=== PATIENT | male | born 1985 | race Asian ===

== ENCOUNTER 2016-06-30 22:04 | Inpatient (IN) | payer BC ==
[~2016-06-30 22:04] MED LIST: DIVA500T7 PO; PHE30 PO; ZONI100C13 PO
[2016-07-01 00:15] VITALS: BP 99/54; RESP 19
[2016-07-01] MEDS ORDERED: morphine 2 MG INJ IV PRN (02:30)
[2016-07-01] MEDS ORDERED: NACL 0.9% 3 ML SYG IV SCH (02:30)
[2016-07-01] MEDS ORDERED: DOCUSATE SODIUM 100 MG CAP PO PRN (02:30)
[2016-07-01] MEDS ORDERED: LORAZEPAM 2 MG INJ IV PRN (02:30)
[2016-07-01] MEDS ORDERED: ACETAMINOPHEN 325 MG TAB PO PRN (02:30)
[2016-07-01] MEDS ORDERED: ALBUTEROL/IPRATROPIUM (NEB) 3 ML AMP HHN PRN (02:30)
[2016-07-01] MEDS ORDERED: ONDANSETRON 4 MG INJ IV PRN (02:30)
--- NOTE | 2016-07-01 02:44 | HP ---
Date/Time of Note Date/Time of Note DATE: 07/01/16 TIME: 02:37 Assessment/Plan VTE Prophylaxis VTE Prophylaxis Intervention: SCD's Lines/Catheters IV [facility]from [facility] Peripheral IV Urinary Cath still in place: No Assessment/Plan Assessment/Plan 31 yo male with a past medical history of epilepsy, MR, with cognition disorder who presents with several days of change in mental status. 1. Encephalopathy - metabolic vs other - will admit the patient to med/surg, consult neurology, check TSH/Mag, Vit B12, Folate, IVF, npo, EEG, seizure precautions, neurovascular checks 2. Epilepsy - continue with depakote, check level, phenobarbital and zonegran. EEG for overriding seizures 3. Hyponatremia - continue with IVF 4. MR/cognitive delay - continue with re-orienting patient 5. GI ppx - pepcid IV 6. DVT ppx - scds as per clinical course. this history and physical took greater then 45 minutes to complete HPI/ROS Admit Date/Time Admit Date/Time Jul 01, 2016 at 2:38 am Hx of Present Illness 31 yo male with a past medical history of epilepsy, MR, with cognition disorder who presents with several days of change in mental status. As per the chart, since the patient is no verbal, he has not been eating or acting the same over the last several days. He was noted not to have any seizure like activity. He did have a bump on his head. He initially went to [facility] for his evaluation, and transferred here for insurance purposes. [facility]: Na+ : 129 CT head: area of scalp swelling noted, no active bleeding CXR: Left midlung increased opacity, concerning for infiltrate ROS cannot assess patient is non-verbal PMH/Family/Social Past Medical History epilepsy, MR with cognitive delay Past Surgical History Past Surgical Hx: no surgical history Family History Significant Family History: no pertinent family hx Social History Alcohol Use: none Smoking Status: Never smoker Drug Use: none Exam/Review of Systems Exam Exam Gen Rosita: NAD, Alert to self HEENT: scalp hematoma noted, PERRLA NECK: supple, no thyromegaly THORAX: symmetrical, no obvious deformities CV: S1S2, RRR, no M/G/R Lungs: CTAB no W/C/R/R Abd: soft, NT/ND, +BS, no rebound, no guarding, neg HSM EXT: no edema, no ecchymosis, no clubbing, FROM Neuro: CN II-XII grossly intact, no focal deficits Psych: withdrawn, non-communicative Skin: C/D/I Medications Medications Current Medications Sodium Chloride (NS) 1,000 ml @ 75 mls/hr [id number] IV ; Start 07/01/16 at 02:23 Ondansetron HCl (Zofran Inj) 4 mg Q6H PRN IV NAUSEA AND/OR VOMITING; Start at 02:30 Acetaminophen (Tylenol Tab) 650 mg Q6H PRN PO PAIN LEVEL 1-3 OR FEVER; Start at 02:30 Morphine Sulfate (morphine) 2 mg Q4H PRN IV SEVERE PAIN LEVEL 7-10; Start 07/01 at 02:30 Docusate Sodium (Colace) 100 mg Q12H PRN PO CONSTIPATION; Start 07/01/16 at 02: 30 Famotidine (Pepcid Iv) 20 mg Q12 IV ; Start 07/01/16 at 09:00 Divalproex Sodium (Depakote Er) 500 mg Q8 PO ; Start 07/01/16 at 06:00 Phenobarbital (Luminal) 64.8 mg BID PO ; Start 07/01/16 at 09:00 Zonisamide (Zonegran) 200 mg BID PO ; Start 07/01/16 at 09:00 Lorazepam (Ativan) 2 mg Q6H PRN IV seizures; Start 07/01/16 at 02:30 PATRICIA LOPEZ MD Jul 01, 2016 02:44
[2016-07-01] MEDS: SOD CHLORIDE 0.9% 1,000 ML IV SCH ×2 (03:35→21:37)
[2016-07-01] MEDS: CEFTRIAXONE 1 GM/50 ML (PMX) 50 ML IVPB SCH (03:35)
[2016-07-01] MEDS: AZITHROMYCIN 500MG/NS (PMX) 250 ML IVPB SCH (04:44)
[2016-07-01] MEDS: DIVALPROEX (ER) 500 MG TAB PO SCH ×3 (06:19→21:39)
[2016-07-01 07:05] LABS: FOLATE 14.4 ng/ml (2.8-20.0)
[2016-07-01 08:09] LABS: MAGNESIUM 2.1 mg/dl (1.7-2.5)
[2016-07-01 08:10] LABS: CHOL/HDL RATIO 8.3 RATIO
[2016-07-01 08:24] VITALS: BP 100/60; RESP 18
[2016-07-01] MEDS: ZONISAMIDE 100 MG CAP PO SCH ×2 (09:19→21:37)
[2016-07-01] MEDS: FAMOTIDINE 20 MG INJ IV SCH ×2 (09:19→21:37)
[2016-07-01] MEDS: PHENOBARBITAL 32.4 MG TAB PO SCH ×2 (09:19→21:37)
[2016-07-01 09:27] LABS: THYROID STIMULATING HORMONE 3.68 MIU/L (0.465-4.680)
--- NOTE | 2016-07-01 15:51 | PDOCDIS ---
Discharge Instructions CONDITION Patient Condition: Good HOME CARE INSTRUCTIONS: Diet Instructions: Regular ACTIVITY: Activity Restrictions: No Restrictions FOLLOW UP/APPOINTMENTS Appointments Follow up with PCP as out-pt in one week MARY TAM MD Jul 01, 2016 15:51
[2016-07-01] MEDS ORDERED: CEPH500C PO (15:52)
--- NOTE | 2016-07-01 15:56 | PN ---
Date/Time of Note Date/Time of Note DATE: 07/01/16 TIME: 15:53 Assessment/Plan VTE Prophylaxis VTE Prophylaxis Intervention: SCD's Lines/Catheters IV [facility]from [facility] Peripheral IV Urinary Cath still in place: No Assessment/Plan Chief Complaint/Hosp Course Assessment/Plan 1. Encephalopathy - metabolic vs other - Resolved, patient is awake and alert 2. Epilepsy - continue with depakote, check level, phenobarbital and zonegran. EEG for overriding seizures 3. Hyponatremia - continue with IVF, follow-up electrolytes 4. MR/cognitive delay - continue with re-orienting patient 5. GI ppx - pepcid IV 6. DVT ppx - scds Continue monitor patient closely for recommendation management treatment as clinical course Plan to discharge home tomorrow Problems: Subjective 24 Hr Interval Summary Free Text/Dictation Patient is awake alert Able to tolerate p.o. intake/his medications Exam/Review of Systems Vital Signs Vitals Vital Signs Date Time Temp Pulse Resp B/P Pulse Ox O2 Delivery O2 Flow Rate FiO2 07/01/16 08:24 98.6 18 18 100/60 95 Intake and Output 06/30/16 06/30/16 07/01/16 15:00 23:00 07:00 Intake Total 20 ml Output Total 400 ml Balance -380 ml Exam General: The patient is well-developed, Not in acute distress. HEENT: Atraumatic, normocephalic. The pupils are equal and round . Neck: Supple with full range of motion. Chest: Normal expansion of the thorax during inspiration Lungs: Clear to auscultation bilaterally Heart: Normal S1-S2, Regular rhythm and rate. Abdomen: Soft , nontender, nondistended , bowel sounds are present. Extremities: Normal to inspection, no edema no cyanosis Neurologic: The patient is awake, alert, able to follow commands Results Results 24 hrs Laboratory Tests Test 07/01/16 04:55 Cholesterol Level 100 Cholesterol/HDL Ratio 8.3 Folate 14.4 HDL Cholesterol 12 L Hemoglobin A1c 5.2 LDL Cholesterol, Calculated 66 Magnesium Level 2.1 Thyroid Stimulating Hormone (TSH) 3.680 Triglycerides Level 112 Valproic Acid (Depakene) Level 41 L Vitamin B12 Level 722 Medications Medications Current Medications Sodium Chloride (NS) 1,000 ml @ 75 mls/hr [id number] IV Last administered on 07/01t 03:35; Admin Dose 75 MLS/HR; Start 07/01/16 at 02:23 Ondansetron HCl (Zofran Inj) 4 mg Q6H PRN IV NAUSEA AND/OR VOMITING; Start at 02:30 Acetaminophen (Tylenol Tab) 650 mg Q6H PRN PO PAIN LEVEL 1-3 OR FEVER; Start at 02:30 Morphine Sulfate (morphine) 2 mg Q4H PRN IV SEVERE PAIN LEVEL 7-10; Start 07/01 at 02:30 Docusate Sodium (Colace) 100 mg Q12H PRN PO CONSTIPATION; Start 07/01/16 at 02: 30 Famotidine (Pepcid Iv) 20 mg Q12 IV Last administered on 07/01/16 09:19; Admin Dose 20 MG; Start 07/01/16 at 09:00 Divalproex Sodium (Depakote Er) 500 mg Q8 PO Last administered on 07/01/16 14: 17; Admin Dose 500 MG; Start 07/01/16 at 06:00 Phenobarbital (Luminal) 64.8 mg BID PO Last administered on 07/01/16 09:19; Admin Dose 64.8 MG; Start 07/01/16 at 09:00 Zonisamide (Zonegran) 200 mg BID PO Last administered on 07/01/16 09:19; Admin Dose 200 MG; Start 07/01/16 at 09:00 Lorazepam 2 mg 2 mg Q6H PRN IV seizures; Start 07/01/16 at 02:30 Azithromycin 250 ml @ 250 mls/hr Q24H IVPB Last administered on 07/01/16 04: 44; Admin Dose 250 MLS/HR; Start 07/01/16 at 04:00 Ceftriaxone Sodium (Rocephin) 50 ml @ 100 mls/hr Q24H IVPB Last administered on 07/01/16 03:35; Admin Dose 100 MLS/HR; Start 07/01/16 at 03:00 MARY TAM MD Jul 01, 2016 15:56
[2016-07-01 17:05] LABS: POTASSIUM 4.3 mmol/L (3.5-5.1)
[2016-07-01 17:07] LABS: CREATININE 0.6 mg/dl (0.61-1.24)
[2016-07-01 17:08] LABS: CALCIUM 8.1 mg/dl (8.4-10.2)
--- NOTE | 2016-07-01 19:42 | CONS ---
Date/Time of Note Date/Time of Note DATE: 07/01/16 TIME: 19:33 Assessment/Plan Assessment/Plan Chief Complaint/Hosp Course 31 y/o M hx of MR, cognitive delay, with seizure d/o presents with days of encephalopathy. no witnessed seizure preceding admission, being treated for presume pneumonia. -Recommend Routine EEG -continue seizure precautions -continue on all current doses of current seizure medications -low dose ativan prn seizures -continue medical management, will follow Problems: Consultation Date/Type/Reason Admit Date/Time Jul 01, 2016 at 2:38 am Date of Consultation: Jul 01, 2016 Type of Consultation: Neurology Reason for Consultation seizure evaluation Referring Provider: PATRICIA LOPEZ MD Hx of Present Illness 31 year old male with history of epilepsy managed on Depakote, Zonegran, and Phenobarbital with cognitive disorder presents with encephalopathy for several days. No family at bedside during evaluation, per documentation he has poor PO intake and has not been acting like himself the last few days. He was transferred from [facility], pertinent labs, serum Na: 129. Head CT area of scalp swelling, no active bleeding, hematoma was previously seen on CTH at (01/2014). CXR showed left midlung increased opacity, concerning for infiltrate. No seizure activity reported during hospitalization or prior to hospitalization. VPA level checked: 41. He is currently being treated with azithromycin and ceftriaxone for management of presumed pneumonia. Past Medical History seizures MR developmental delay Past Surgical History Past Surgical Hx: no surgical history Social History Alcohol Use: none Smoking Status: Never smoker Drug Use: none Exam/Review of Systems Vital Signs Vitals Vital Signs Date Time Temp Pulse Resp B/P Pulse Ox O2 Delivery O2 Flow Rate FiO2 07/01/16 08:24 98.6 71 18 100/60 95 Intake and Output 06/30/16 06/30/16 07/01/16 15:00 23:00 07:00 Intake Total 20 ml Output Total 400 ml Balance -380 ml Exam patient is awake and alert he is lying in bed listening to music he appears calm, inattentive speech is very slow and delayed can only answer very simple questions says he is in the hospital, because he was transferred from the other hospital able to tell me he is listening to music from [place] unable to recall hx regarding seizures CN: MITALI, VFF, blinks to threat no facial asymmetry palate upgoing uvula midline scm/trap intact tongue midline Motor: UE no drift, LE no drift Sensory intact throughout Coordination no obvious ataxia Results Result Diagram: 07/01/16 1645 Results 24 hrs Laboratory Tests Test 07/01/16 04:55 07/01/16 16:45 Cholesterol Level 100 Cholesterol/HDL Ratio 8.3 Folate 14.4 HDL Cholesterol 12 L Hemoglobin A1c 5.2 LDL Cholesterol, Calculated 66 Magnesium Level 2.1 Thyroid Stimulating Hormone (TSH) 3.680 Triglycerides Level 112 Valproic Acid (Depakene) Level 41 L Vitamin B12 Level 722 Anion Gap 15 Blood Urea Nitrogen 8 Calcium Level 8.1 L Carbon Dioxide Level 22 Chloride Level 104 Creatinine 0.60 L Glucose Level 74 Potassium Level 4.3 Sodium Level 137 Medications Medications Current Medications Sodium Chloride (NS) 1,000 ml @ 75 mls/hr [id number] IV Last administered on 07/01 03:35; Admin Dose 75 MLS/HR; Start 07/01/16 at 02:23 Ondansetron HCl (Zofran Inj) 4 mg Q6H PRN IV NAUSEA AND/OR VOMITING; Start at 02:30 Acetaminophen (Tylenol Tab) 650 mg Q6H PRN PO PAIN LEVEL 1-3 OR FEVER; Start at 02:30 Morphine Sulfate (morphine) 2 mg Q4H PRN IV SEVERE PAIN LEVEL 7-10; Start 07/01 at 02:30 Docusate Sodium (Colace) 100 mg Q12H PRN PO CONSTIPATION; Start 07/01/16 at 02: 30 Famotidine (Pepcid Iv) 20 mg Q12 IV Last administered on 07/01/16 09:19; Admin Dose 20 MG; Start 07/01/16 at 09:00 Divalproex Sodium (Depakote Er) 500 mg Q8 PO Last administered on 07/01/16 14: 17; Admin Dose 500 MG; Start 07/01/16 at 06:00 Phenobarbital (Luminal) 64.8 mg BID PO Last administered on 07/01/16 09:19; Admin Dose 64.8 MG; Start 07/01/16 at 09:00 Zonisamide (Zonegran) 200 mg BID PO Last administered on 07/01/16 09:19; Admin Dose 200 MG; Start 07/01/16 at 09:00 Lorazepam 2 mg 2 mg Q6H PRN IV seizures; Start 07/01/16 at 02:30 Azithromycin 250 ml @ 250 mls/hr Q24H IVPB Last administered on 07/01/16 04: 44; Admin Dose 250 MLS/HR; Start 07/01/16 at 04:00 Ceftriaxone Sodium (Rocephin) 50 ml @ 100 mls/hr Q24H IVPB Last administered on 07/01/16 03:35; Admin Dose 100 MLS/HR; Start 07/01/16 at 03:00 VANDANA GALLEGOS MD Jul 01, 2016 19:42
[2016-07-01 20:00] VITALS: BP 105/72; RESP 18
[2016-07-02] MEDS: CEFTRIAXONE 1 GM/50 ML (PMX) 50 ML IVPB SCH (02:41)
[2016-07-02] MEDS: AZITHROMYCIN 500MG/NS (PMX) 250 ML IVPB SCH (03:39)
[2016-07-02] MEDS: SOD CHLORIDE 0.9% 1,000 ML IV SCH (05:03)
[2016-07-02 05:23] LABS: POTASSIUM 4.1 mmol/L (3.5-5.1)
[2016-07-02 05:25] LABS: CREATININE 0.57 mg/dl (0.61-1.24)
[2016-07-02 05:26] LABS: CALCIUM 8.2 mg/dl (8.4-10.2)
[2016-07-02 06:16] LABS: HEMATOCRIT 42.9 % (42.0-52.0); MEAN CORPUSCULAR HEMOGLOBIN 23.9 pg (29.0-33.0); MEAN CORPUSCULAR HGB CONC 32.7 g/dl (32.0-37.0); MEAN CORPUSCULAR VOLUME 73.3 fl (82.0-101.0); MEAN PLATELET VOLUME 12.9 fl (7.4-10.4); PLATELET COUNT 130 10^3/UL (140-440); RED BLOOD COUNT 5.85 10^6/ul (4.70-6.10); RED CELL DISTRIBUTION WIDTH 14.6 % (11.5-14.5); UNCORRECTED WBC 3.9 10^3/ul (4.8-10.8); WHITE BLOOD COUNT 3.9 10^3/ul (4.8-10.8)
[2016-07-02 06:21] LABS: CONDITION 1; LH ANALYZER COMMENTS 1; SUSPECT 1
[2016-07-02] MEDS: DIVALPROEX (ER) 500 MG TAB PO SCH ×2 (06:28→14:00)
[2016-07-02 08:33] VITALS: BP 109/72; RESP 16
[2016-07-02] MEDS: PHENOBARBITAL 32.4 MG TAB PO SCH (09:10)
[2016-07-02] MEDS: FAMOTIDINE 20 MG INJ IV SCH (09:10)
[2016-07-02] MEDS: ZONISAMIDE 100 MG CAP PO SCH (09:10)
[2016-07-02 09:47] LABS: EOSINOPHILS # 0.1 10^3/ul (0.0-0.5); LYMPHOCYTES # 1.7 10^3/ul (0.8-2.9); MONOCYTE # 0.7 10^3/ul (0.3-0.9); NEUTROPHIL # 1.2 10^3/ul (1.6-7.5)
--- NOTE | 2016-07-02 12:10 | CONS ---
Date/Time of Note Date/Time of Note DATE: 07/02/16 TIME: 12:08 Consult Date/Type/Reason Admit Date/Time Jun 30, 2016 at 23:58 Initial Consult Date 07/01/16 Type of Consultation: Neurology Reason for Consultation history of seizures p/w encephalopathy, pneumonia Ordering Provider: PATRICIA LOPEZ MD Subjective no seizures overnight patient is sitting up in chair this morning appears comfortable, encephalopathy improved Objective Vital Signs Date Time Temp Pulse Resp B/P Pulse Ox O2 Delivery O2 Flow Rate FiO2 07/02/16 08:33 96.9 63 16 109/72 97 Intake and Output 07/01/16 07/01/16 07/02/16 15:00 23:00 07:00 Intake Total 900 ml 1230 ml Output Total 800 ml Balance 900 ml 430 ml patient is awake and alert sitting up in chair appears comfortable he appears calm, inattentive speech is very slow and delayed can only answer very simple questions able to follow 2 step commands better today unable to recall hx regarding seizures CN: MITALI, VFF, blinks to threat no facial asymmetry palate upgoing uvula midline scm/trap intact tongue midline Motor: UE no drift, LE no drift Sensory intact throughout Coordination no obvious ataxia Results/Medications Result Diagram: 07/02/16 0450 07/02/16 0450 Results 24 hrs Laboratory Tests Test 07/01/16 16:45 07/02/16 04:50 Anion Gap 15 16 Blood Urea Nitrogen 8 8 Calcium Level 8.1 L 8.2 L Carbon Dioxide Level 22 23 Chloride Level 104 107 Creatinine 0.60 L 0.57 L Glucose Level 74 78 Potassium Level 4.3 4.1 Sodium Level 137 142 Band Neutrophils % 5.0 Basophils # 0.0 Basophils % 1.0 Blood Morphology Comment Differential Comment MANUAL DIFF Eosinophils # 0.1 Eosinophils % 2.0 Hematocrit 42.9 Hemoglobin 14.0 Large Platelets 1+ Lymphocytes # 1.7 Lymphocytes % 43.0 Mean Corpuscular Hemoglobin 23.9 L Mean Corpuscular Hemoglobin Concent 32.7 Mean Corpuscular Volume 73.3 L Mean Platelet Volume 12.9 H Monocytes # 0.7 Monocytes % 17.0 H Neutrophils # 1.2 L Neutrophils % 30.0 L Nucleated Red Blood Cells # Nucleated Red Blood Cells % Platelet Count 130 L Reactive Lymphocytes % 2.0 Red Blood Count 5.85 Red Cell Distribution Width 14.6 H White Blood Count 3.9 L Medications Current Medications Sodium Chloride (NS) 1,000 ml @ 75 mls/hr [id number] IV Last administered on 07/01 21:37; Admin Dose 75 MLS/HR; Start 07/01/16 at 02:23 Ondansetron HCl (Zofran Inj) 4 mg Q6H PRN IV NAUSEA AND/OR VOMITING; Start at 02:30 Acetaminophen (Tylenol Tab) 650 mg Q6H PRN PO PAIN LEVEL 1-3 OR FEVER; Start at 02:30 Morphine Sulfate (morphine) 2 mg Q4H PRN IV SEVERE PAIN LEVEL 7-10; Start 07/01 at 02:30 Docusate Sodium (Colace) 100 mg Q12H PRN PO CONSTIPATION; Start 07/01/16 at 02: 30 Famotidine (Pepcid Iv) 20 mg Q12 IV Last administered on 07/02/16 09:10; Admin Dose 20 MG; Start 07/01/16 at 09:00 Divalproex Sodium (Depakote Er) 500 mg Q8 PO Last administered on 07/02/16 06: 28; Admin Dose 500 MG; Start 07/01/16 at 06:00 Phenobarbital (Luminal) 64.8 mg BID PO Last administered on 07/02/16 09:10; Admin Dose 64.8 MG; Start 07/01/16 at 09:00 Zonisamide (Zonegran) 200 mg BID PO Last administered on 07/02/16 09:10; Admin Dose 200 MG; Start 07/01/16 at 09:00 Lorazepam 2 mg 2 mg Q6H PRN IV seizures; Start 07/01/16 at 02:30 Azithromycin 250 ml @ 250 mls/hr Q24H IVPB Last administered on 07/02/16 03: 39; Admin Dose 250 MLS/HR; Start 07/01/16 at 04:00 Ceftriaxone Sodium (Rocephin) 50 ml @ 100 mls/hr Q24H IVPB Last administered on 07/02/16 02:41; Admin Dose 100 MLS/HR; Start 07/01/16 at 03:00 Assessment/Plan Chief Complaint/Hosp Course 31 y/o M hx of MR, cognitive delay, with seizure d/o presents with days of encephalopathy. no witnessed seizure preceding admission, being treated for presumed pneumonia. -Routine EEG completed, follow up official read clinically no seizures during hospital stay -continue seizure precautions -continue on all current doses of current seizure medications -low dose ativan prn seizures -continue medical management, encephalopathy improving -will sign off, please reconsult prn Problems: VANDANA GALLEGOS MD Jul 02, 2016 12:10
--- NOTE | 2016-07-02 17:10 | DS ---
DATE OF ADMISSION: 06/30/2016 DATE OF DISCHARGE: 07/02/2016 CONSULTANTS: Neurologist. DISCHARGE DIAGNOSES: 1. Encephalopathy, versus seizure. Patient is awake, alert, oriented, ____has resolved. 2. History of epilepsy. Continue Depakote. 3. Hypernatremia, resolved, status post IV fluid. 4. History of cognitive delay, stable. MEDICATIONS: 1. Keflex. 2. Depakote. 3. Phenobarbital. 4. Zonegran. ALLERGIES: NO KNOWN DRUG ALLERGIES. VITAL SIGNS: Temperature 99.3, pulse 63, respirations 16, blood pressure 109/____, oxygen saturatio n 97%. Labs this morning: Sodium 142, potassium 4.1, chloride 107, bicarbonate 23, BUN 8, creatinine 0.57, glucose 78, calcium 8.2, hemoglobin 5.2. Vitamin B12 of 722, folate 14.4, ____ 30.68. WBC 3.9, he moglobin 14, hematocrit 42.9, platelets 130, MCV 73.3. HOSPITAL COURSE: This is a pleasant 31-year-old gentleman who resides at home with his parents. PAST MEDICAL HISTORY: Epilepsy, mental retardation with cognitive disorder who presented to several days of change in mental status at the outside facility. The patient was seen and evaluated at [facility] in [place] and was found to be hyponatremic. [facility] where neurology was consulted. Patient's CT of the brain did not show any acute abnormality. His electrolytes were found to have sodium of 129 at [facility] with a potassium 3.8. He was started on IV fluid. Neurology was consulted. His home medication was continued. His vitamin B12 was found to be normal. Folate was normal, TSH normal. Patient's electrolytes have been within normal limits. This morning, sodium 142, potassium 4.1, chloride 107, and the patient at this time is back to his baseline and is cleared at neurology standpoint to be discharged home with a close followup with his primary care physician and neurolog y as outpatient. In regard to his seizure disorder, there has not been any evidence of seizure duri ng this course of hospitalization. At this time the patient has been able to tolerate his oral inta ke without any difficulty. He was found to have positive finding of pneumonia on chest x-ray but hi s WBC was within normal limits. He was started on prophylactic IV antibiotics and will be discharge d home on Keflex. At this time, the patient is medically stable to be discharged home with a close followup with his primary care physician as outpatient. Dictated By: MARY RINCON/NTS Conf#: [id number] DID#: [id number]
--- NOTE | 2016-07-03 16:03 | SP ---
DATE OF PROCEDURE: 07/01/2016 EEG REPORT HISTORY: This is a 31-year-old male with a history of cognitive function and seizure disorder, who w as admitted with confusion. CURRENT MEDICATIONS: 1. Phenobarbital. 2. Depakote. 3. Azithromycin. 4. Ceftriaxone. 5. Morphine. PROCEDURE: Utilizing a 16-channel EEG machine, cap scalp electrodes were applied in accordance with the International 10-20 system. [id number] and [id number] montages were displayed. Electric al impedances were measured and reported. DESCRIPTION: During the resting state a posterior dominant rhythm of about 7-8 Hz were seen bihemis pherically. Photic stimulation had a good response. Hyperventilation was not performed. There was no focal lateralizing or epileptiform discharges identified. INTERPRETATION: This is mildly abnormal EEG because of generalized bihemispheric background slowing , consistent with mild encephalopathy, without epileptiform activity. Please correlate these findin gs with the patient's clinical picture. Dictated By: CAM BEARDEN/JOSEPH Conf#: [id number] DID#: [id number]
== END 2016-07-02 19:33 | disposition home or self-care (01) | DRG 70 ==
LOC: PP2 23:58
PROVIDERS: ADMIT Family Medicine; ATTEND Family Medicine
DX: G93.40 Encephalopathy, unspecified (principal); J18.9 Pneumonia, unspecified organism; E87.1 Hypo-osmolality and hyponatremia; G40.909 Epilepsy, unspecified, not intractable, without status epilepticus; F09 Unspecified mental disorder due to known physiological condition; I34.0 Nonrheumatic mitral (valve) insufficiency; F79 Unspecified intellectual disabilities
CPT/HCPCS: 80048; 80061; 80164; 82607; 82746; 83036; 83735; 84443; 85025; 95819; J0456; J0696; J7030

== ENCOUNTER → 2017-03-16 | Outpatient (CLI) | payer BC ==
[~2017-03-16] MED LIST changes: +CEPH500C PO; -ZONI100C13 PO; +ZONI100C66 PO
== END | disposition home or self-care (01) ==
LOC: EEG 10:02
PROVIDERS: ATTEND Psychiatry & Neurology Neurology
DX: G40.909 Epilepsy, unspecified, not intractable, without status epilepticus (principal)
CPT/HCPCS: 95819

== ENCOUNTER 2017-04-06 06:50 | Inpatient (IN) | payer BC ==
[~2017-04-06] VITALS: Ht 182.9 cm; Wt 65.9 kg
[2017-04-06] MEDS ORDERED: ONDANSETRON 4 MG INJ IV PRN ×2 (09:00→10:30)
[2017-04-06] MEDS ORDERED: ACETAMINOPHEN 325 MG TAB PO PRN ×2 (09:00→10:30)
--- NOTE | 2017-04-06 09:18 | ERD ---
ER Documentation Chief Complaint Chief Complaint DIRECT ADMIT FROM [facility] SEIZURE HPI 32-year-old male was sent as a direct admission to this hospital. However because of not having beds currently he is being housed in the emergency room. He is sent for increasing frequently frequency of seizures. I reviewed his documentation from the transfer hospital and see that he has a therapeutic Depakote level, normal head CT, CBC within normal limits except for mild thrombocytopenia, no electrolyte abnormalities. He was given IV fluid. His home medications are Depakote and phenobarbital for seizures. He has had a seizure being therapeutic on his medication in the frequency of seizures is increasing to about 3 of day he is being admitted for neurologic evaluation. Dr. Bynum accepted transfer. Patient himself says that he is feeling better and is actually hungry. Denies any current headache. Has no current neurological symptoms per ROS All systems reviewed and are negative except as per history of present illness. Medications Home Meds Discontinued Scripts Cephalexin* (Cephalexin*) 500 Mg Capsule, 500 MG PO TID, #15 CAP Prov:MARY TAM MD 07/01/16 Phenobarbital* (Phenobarbital*) 32.4 Mg Tab, 64.8 MG PO BID, #60 TAB Prov:CYNTHIA RAIN BARK TANNER 01/24/14 Divalproex Sodium* (Depakote ER*) 500 Mg Tabsr, 500 MG PO Q8, #90 Prov:CYNTHIA RAIN BARK TANNER 01/24/14 Zonisamide* (Zonegran*) 100 Mg Cap, 200 MG PO BID, #60 Prov:CYNTHIA RAIN BARK TANNER 01/24/14 Allergies Allergies: Coded Allergies: No Known Allergy (Unverified , 04/06/17) PMhx/Soc History of Surgery: Yes (hernia repair when he was a baby) Anesthesia Reaction: No Hx Neurological Disorder: Yes (seizures) Hx Respiratory Disorders: No Hx Cardiac Disorders: No Hx Psychiatric Problems: No Hx Miscellaneous Medical Probl: No Hx Alcohol Use: No Hx Substance Use: Yes Hx Tobacco Use: No Physical Exam Vitals Vital Signs Date Time Temp Pulse Resp B/P Pulse Ox O2 Delivery O2 Flow Rate FiO2 04/06/17 07:05 97.9 60 20 109/79 100 Physical Exam Const: [] No distress Head: Atraumatic Eyes: Normal Conjunctiva, EOMI, PERRLA ENT: Normal External Ears, Nose and Mouth. Resp: Clear to auscultation bilaterally Cardio: Regular rate and rhythm, no murmurs Skin: No petechiae or rashes Ext: No cyanosis, or edema Neur: Awake and alert and oriented 3, no focal deficits, cranial nerves II through XII intact, no cerebellar deficits finger-nose testing. Psych: Normal Mood and Affect Results 24 hrs Current Medications Medications (Trade) Dose Ordered Sig/Phi Route PRN Reason Start Time Stop Time Status Last Admin Dose Admin Ondansetron HCl (Zofran Inj) 4 mg ER BRIDGE PRN IV NAUSEA AND/OR VOMITING 04/06/17 09:00 04/07/17 08:59 Acetaminophen (Tylenol Tab) 650 mg ER BRIDGE PRN PO MILD PAIN/FEVER 04/06/17 09:00 04/07/17 08:59 Procedures/MDM Patient sent from another facility for increasing frequency of seizures and recent seizure last night. He is therapeutic on his Depakote. I placed him on cardiac monitors and seizure precautions were undertaken. Allowing the patient to eat as a currently see no reason he should be n.p.o. Is in no current distress. Notified the hospitalist team of his arrival. I will continue to monitor him in prepare for the seizures which I will treat as he is not likely to get a bed in the next several hours. Departure Diagnosis: Primary Impression: Seizure disorder Condition: Blanie TILLMANSHANELLMERCEDEZARMANDO HUTTON Apr 06, 2017 09:18
--- NOTE | 2017-04-06 09:18 | ERD ---
ER Documentation Chief Complaint Chief Complaint DIRECT ADMIT FROM [facility] SEIZURE HPI 32-year-old male was sent as a direct admission to this hospital. However because of not having beds currently he is being housed in the emergency room. He is sent for increasing frequently frequency of seizures. I reviewed his documentation from the transfer hospital and see that he has a therapeutic Depakote level, normal head CT, CBC within normal limits except for mild thrombocytopenia, no electrolyte abnormalities. He was given IV fluid. His home medications are Depakote and phenobarbital for seizures. He has had a seizure being therapeutic on his medication in the frequency of seizures is increasing to about 3 of day he is being admitted for neurologic evaluation. Dr. Bynum accepted transfer. Patient himself says that he is feeling better and is actually hungry. Denies any current headache. Has no current neurological symptoms per ROS All systems reviewed and are negative except as per history of present illness. Medications Home Meds Discontinued Scripts Cephalexin* (Cephalexin*) 500 Mg Capsule, 500 MG PO TID, #15 CAP Prov:MARY TAM MD 07/01/16 Phenobarbital* (Phenobarbital*) 32.4 Mg Tab, 64.8 MG PO BID, #60 TAB Prov:CYNTHIA RAIN SYSTEM SUPPORT ADMINISTRATOR 01/24/14 Divalproex Sodium* (Depakote ER*) 500 Mg Tabsr, 500 MG PO Q8, #90 Prov:CYNTHIA RAIN SYSTEM SUPPORT ADMINISTRATOR 01/24/14 Zonisamide* (Zonegran*) 100 Mg Cap, 200 MG PO BID, #60 Prov:CYNTHIA RAIN SYSTEM SUPPORT ADMINISTRATOR 01/24/14 Allergies Allergies: Coded Allergies: No Known Allergy (Unverified , 04/06/17) PMhx/Soc History of Surgery: Yes (hernia repair when he was a baby) Anesthesia Reaction: No Hx Neurological Disorder: Yes (seizures) Hx Respiratory Disorders: No Hx Cardiac Disorders: No Hx Psychiatric Problems: No Hx Miscellaneous Medical Probl: No Hx Alcohol Use: No Hx Substance Use: Yes Hx Tobacco Use: No Physical Exam Vitals Vital Signs Date Time Temp Pulse Resp B/P Pulse Ox O2 Delivery O2 Flow Rate FiO2 04/06/17 07:05 97.9 60 20 109/79 100 Physical Exam Const: [] No distress Head: Atraumatic Eyes: Normal Conjunctiva, EOMI, PERRLA ENT: Normal External Ears, Nose and Mouth. Resp: Clear to auscultation bilaterally Cardio: Regular rate and rhythm, no murmurs Skin: No petechiae or rashes Ext: No cyanosis, or edema Neur: Awake and alert and oriented 3, no focal deficits, cranial nerves II through XII intact, no cerebellar deficits finger-nose testing. Psych: Normal Mood and Affect Results 24 hrs Current Medications Medications (Trade) Dose Ordered Sig/Phi Route PRN Reason Start Time Stop Time Status Last Admin Dose Admin Ondansetron HCl (Zofran Inj) 4 mg ER BRIDGE PRN IV NAUSEA AND/OR VOMITING 04/06/17 09:00 04/07/17 08:59 Acetaminophen (Tylenol Tab) 650 mg ER BRIDGE PRN PO MILD PAIN/FEVER 04/06/17 09:00 04/07/17 08:59 Procedures/MDM Patient sent from another facility for increasing frequency of seizures and recent seizure last night. He is therapeutic on his Depakote. I placed him on cardiac monitors and seizure precautions were undertaken. Allowing the patient to eat as a currently see no reason he should be n.p.o. Is in no current distress. Notified the hospitalist team of his arrival. I will continue to monitor him in prepare for the seizures which I will treat as he is not likely to get a bed in the next several hours. Departure Diagnosis: Primary Impression: Seizure disorder Condition: Blaine TILLMANSHANELLMERCEDEZARMANDO HUTTON Apr 06, 2017 09:18
--- NOTE | 2017-04-06 09:18 | ERD ---
ER Documentation Chief Complaint Chief Complaint DIRECT ADMIT FROM [facility] SEIZURE HPI 32-year-old male was sent as a direct admission to this hospital. However because of not having beds currently he is being housed in the emergency room. He is sent for increasing frequently frequency of seizures. I reviewed his documentation from the transfer hospital and see that he has a therapeutic Depakote level, normal head CT, CBC within normal limits except for mild thrombocytopenia, no electrolyte abnormalities. He was given IV fluid. His home medications are Depakote and phenobarbital for seizures. He has had a seizure being therapeutic on his medication in the frequency of seizures is increasing to about 3 of day he is being admitted for neurologic evaluation. Dr. Bynum accepted transfer. Patient himself says that he is feeling better and is actually hungry. Denies any current headache. Has no current neurological symptoms per ROS All systems reviewed and are negative except as per history of present illness. Medications Home Meds Discontinued Scripts Cephalexin* (Cephalexin*) 500 Mg Capsule, 500 MG PO TID, #15 CAP Prov:MARY TAM MD 07/01/16 Phenobarbital* (Phenobarbital*) 32.4 Mg Tab, 64.8 MG PO BID, #60 TAB Prov:CYNTHIA RAIN BUSINESS JOB TITLES 01/24/14 Divalproex Sodium* (Depakote ER*) 500 Mg Tabsr, 500 MG PO Q8, #90 Prov:CYNTHIA RAIN BUSINESS JOB TITLES 01/24/14 Zonisamide* (Zonegran*) 100 Mg Cap, 200 MG PO BID, #60 Prov:CYNTHIA RAIN BUSINESS JOB TITLES 01/24/14 Allergies Allergies: Coded Allergies: No Known Allergy (Unverified , 04/06/17) PMhx/Soc History of Surgery: Yes (hernia repair when he was a baby) Anesthesia Reaction: No Hx Neurological Disorder: Yes (seizures) Hx Respiratory Disorders: No Hx Cardiac Disorders: No Hx Psychiatric Problems: No Hx Miscellaneous Medical Probl: No Hx Alcohol Use: No Hx Substance Use: Yes Hx Tobacco Use: No Physical Exam Vitals Vital Signs Date Time Temp Pulse Resp B/P Pulse Ox O2 Delivery O2 Flow Rate FiO2 04/06/17 07:05 97.9 60 20 109/79 100 Physical Exam Const: [] No distress Head: Atraumatic Eyes: Normal Conjunctiva, EOMI, PERRLA ENT: Normal External Ears, Nose and Mouth. Resp: Clear to auscultation bilaterally Cardio: Regular rate and rhythm, no murmurs Skin: No petechiae or rashes Ext: No cyanosis, or edema Neur: Awake and alert and oriented 3, no focal deficits, cranial nerves II through XII intact, no cerebellar deficits finger-nose testing. Psych: Normal Mood and Affect Results 24 hrs Current Medications Medications (Trade) Dose Ordered Sig/Phi Route PRN Reason Start Time Stop Time Status Last Admin Dose Admin Ondansetron HCl (Zofran Inj) 4 mg ER BRIDGE PRN IV NAUSEA AND/OR VOMITING 04/06/17 09:00 04/07/17 08:59 Acetaminophen (Tylenol Tab) 650 mg ER BRIDGE PRN PO MILD PAIN/FEVER 04/06/17 09:00 04/07/17 08:59 Procedures/MDM Patient sent from another facility for increasing frequency of seizures and recent seizure last night. He is therapeutic on his Depakote. I placed him on cardiac monitors and seizure precautions were undertaken. Allowing the patient to eat as a currently see no reason he should be n.p.o. Is in no current distress. Notified the hospitalist team of his arrival. I will continue to monitor him in prepare for the seizures which I will treat as he is not likely to get a bed in the next several hours. Departure Diagnosis: Primary Impression: Seizure disorder Condition: Blaine TILLMANSHANELLMERCEDEZARMANDO HUTTON Apr 06, 2017 09:18
[2017-04-06] MEDS ORDERED: LORAZEPAM 2 MG INJ IV PRN (10:30)
[2017-04-06] MEDS ORDERED: NACL 0.9% 3 ML SYG IV SCH (10:30)
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
[2017-04-06] MEDS ORDERED: DIVALPROEX (ER) 500 MG TAB PO SCH (11:30)
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
[2017-04-06] MEDS: ZONISAMIDE 100 MG CAP PO SCH ×2 (12:26→22:20)
[2017-04-06] MEDS: PHENOBARBITAL 32.4 MG TAB PO SCH ×2 (12:26→23:04)
[2017-04-06 14:35] VITALS: Ht 182.9 cm; Wt 65.9 kg
[2017-04-06 16:32] VITALS: PULSE 69
[2017-04-06] MEDS ORDERED: INFLUENZA VIRUS VACCINE 0.5 ML SYG IM* ONE (18:00)
[2017-04-06 20:02] VITALS: PULSE 80
[2017-04-06 20:12] VITALS: BP 105/57; RESP 20
[2017-04-06] MEDS: DIVALPROEX (ER) 250 MG TAB PO SCH (22:21)
[2017-04-06 23:38] VITALS: BP 92/58; RESP 18
[2017-04-07] VITALS (11 sets, daily range): BP systolic 94–123; BP diastolic 56–70; PULSE 66–112; RESP 18–20
[2017-04-07] MEDS: DIVALPROEX (ER) 250 MG TAB PO SCH ×2 (09:05→20:35)
[2017-04-07] MEDS: PHENOBARBITAL 32.4 MG TAB PO SCH ×2 (09:06→20:36)
[2017-04-07] MEDS: ZONISAMIDE 100 MG CAP PO SCH ×2 (09:06→20:36)
--- NOTE | 2017-04-07 10:43 | PN ---
Date/Time of Note Date/Time of Note DATE: 04/07/17 TIME: 10:41 Assessment/Plan VTE Prophylaxis VTE Prophylaxis Intervention: SCD's Lines/Catheters IV [facility]from [facility] Saline Lock Urinary Cath still in place: No Assessment/Plan Chief Complaint/Hosp Course 1. Seizure disorder. Anticonvulsant management as per neurology. The patient will be maintained on seizure precautions. 2. Thrombocytopenia. We will monitor the patient for any active bleeding. Most probably from anticonvulsants. 3. Substance abuse. Cessation advised. 4. Fluids, electrolytes, and nutrition. Regular diet. 5. DVT prophylaxis. Bilateral sequential compression devices. 6. Plan. Continue current management. Await clearance from neurology before discharge. Case discussed with Dr. Saucedo. Problems: Subjective 24 Hr Interval Summary Free Text/Dictation No more seizure episodes reported. Exam/Review of Systems Vital Signs Vitals Vital Signs Date Time Temp Pulse Resp B/P Pulse Ox O2 Delivery O2 Flow Rate FiO2 04/07/17 08:37 68 04/07/17 07:52 98.1 18 105/68 99 04/06/17 13:41 Room Air Intake and Output 04/06/17 04/06/17 04/07/17 15:00 23:00 07:00 Intake Total 800 ml Balance 800 ml Exam General: Adequately build 32 year-old male lying in bed in no apparent distress. HEENT: Normocephalic. Staple on the left occipital area. Abrasion over the right eyebrow and intraocular area. This: Anicteric sclerae, conjunctivae clear. ENT: Nasal septum midline, oral mucosa moist. Neck supple, no JVD noticed. Respiratory: Bilaterally clear breath sounds. No use of accessory muscles of respiration. No adventitious breath sounds. Cardiovascular: S1, S2 heard. No murmurs or gallops. Abdomen: Soft, nontender, and nondistended. Bowel sounds positive in all 4 quadrants. Genitourinary: Deferred. Extremities: No cyanosis, no clubbing, no edema. Peripheral pulses palpable. Neurologic: Cranial nerves II through XII grossly intact. The patient is awake, alert, and oriented. Results Result Diagram: 04/07/17 0854 04/07/17 0854 Results 24 hrs Laboratory Tests Test 04/06/17 13:05 04/07/17 08:54 Urine Opiates Screen Negative Urine Barbiturates Positive Valproic Acid (Depakene) Level 73 Urine Amphetamines Screen Negative Phenobarbital Level 40.1 H Urine Benzodiazepines Screen Negative Urine Cocaine Screen Negative Urine Cannabinoids Positive White Blood Count 6.2 # Red Blood Count 5.84 Hemoglobin 14.0 Hematocrit 44.2 Mean Corpuscular Volume 75.7 L Mean Corpuscular Hemoglobin 24.0 L Mean Corpuscular Hemoglobin Concent 31.7 L Red Cell Distribution Width 15.5 H Platelet Count 131 L Mean Platelet Volume Neutrophils % 35.6 L Lymphocytes % 52.2 H Monocytes % 9.8 Eosinophils % 1.4 Basophils % 0.8 Nucleated Red Blood Cells % 0.0 Neutrophils # 2.2 Lymphocytes # 3.3 H Monocytes # 0.6 Eosinophils # 0.1 Basophils # 0.1 Nucleated Red Blood Cells # 0.0 Sodium Level 144 Potassium Level 4.2 Chloride Level 110 Carbon Dioxide Level 24 Anion Gap 14 Blood Urea Nitrogen 13 Creatinine 0.76 Glucose Level 79 Calcium Level 9.0 Phosphorus Level 4.0 Magnesium Level 1.9 Total Bilirubin 0.4 Direct Bilirubin 0.00 Indirect Bilirubin 0.4 Aspartate Amino Transf (AST/SGOT) 52 H Alanine Aminotransferase (ALT/SGPT) 52 Alkaline Phosphatase 55 Total Protein 7.4 Albumin 3.6 Globulin 3.80 H Albumin/Globulin Ratio 0.94 Amylase Level 129 H Lipase 100 Medications Medications Current Medications Lorazepam (Ativan) 1 mg Q1H PRN IV Seizures; Start 04/06/17 at 10:30 Ondansetron HCl (Zofran Inj) 4 mg Q6H PRN IV NAUSEA AND/OR VOMITING; Start at 10:30 Acetaminophen (Tylenol Tab) 650 mg Q6H PRN PO PAIN LEVEL 1-3 OR FEVER; Start 04/06/17 at 10:30 Zonisamide (Zonegran) 100 mg BID PO Last administered on 04/07/17 09:06; Admin Dose 100 MG; Start 04/06/17 at 11:30 Phenobarbital (Luminal) 64.8 mg BID PO Last administered on 04/07/17 09:06; Admin Dose 64.8 MG; Start 04/06/17 at 11:30 Divalproex Sodium (Depakote Er) 750 mg BID PO Last administered on 04/07/17 09 :05; Admin Dose 750 MG; Start 04/06/17 at 21:00 RENÉ COBOS NP Apr 07, 2017 10:43
--- NOTE | 2017-04-07 13:07 | CONS ---
Date/Time of Note Date/Time of Note DATE: 04/07/17 TIME: 13:04 Consult Date/Type/Reason Admit Date/Time Apr 06, 2017 at 08:53 Initial Consult Date 04/06/17 Type of Consultation: Neurology Reason for Consultation seizure Ordering Provider: RENÉ COBOS DELIVERER MERCHANDISE Subjective remains encephalopathic slow to respond no seizure overnight Objective Vital Signs Date Time Temp Pulse Resp B/P Pulse Ox O2 Delivery O2 Flow Rate FiO2 04/07/17 12:16 66 04/07/17 11:52 98.2 18 94/56 99 04/06/17 13:41 Room Air Intake and Output 04/06/17 04/06/17 04/07/17 15:00 23:00 07:00 Intake Total 800 ml Balance 800 ml Exam awake and alert abrasions throughout right side of his face slow to follow commands encephalopathic CN: II-XII intact Motor: bilateral hands contracted, otherwise strength is 5/5 Results/Medications Result Diagram: 04/07/17 0854 04/07/17 0854 Results 24 hrs Laboratory Tests Test 04/06/17 13:05 04/07/17 08:54 Urine Opiates Screen Negative Urine Barbiturates Positive Valproic Acid (Depakene) Level 73 Urine Amphetamines Screen Negative Phenobarbital Level 40.1 H Urine Benzodiazepines Screen Negative Urine Cocaine Screen Negative Urine Cannabinoids Positive White Blood Count 6.2 # Red Blood Count 5.84 Hemoglobin 14.0 Hematocrit 44.2 Mean Corpuscular Volume 75.7 L Mean Corpuscular Hemoglobin 24.0 L Mean Corpuscular Hemoglobin Concent 31.7 L Red Cell Distribution Width 15.5 H Platelet Count 131 L Mean Platelet Volume Neutrophils % 35.6 L Lymphocytes % 52.2 H Monocytes % 9.8 Eosinophils % 1.4 Basophils % 0.8 Nucleated Red Blood Cells % 0.0 Neutrophils # 2.2 Lymphocytes # 3.3 H Monocytes # 0.6 Eosinophils # 0.1 Basophils # 0.1 Nucleated Red Blood Cells # 0.0 Sodium Level 144 Potassium Level 4.2 Chloride Level 110 Carbon Dioxide Level 24 Anion Gap 14 Blood Urea Nitrogen 13 Creatinine 0.76 Glucose Level 79 Calcium Level 9.0 Phosphorus Level 4.0 Magnesium Level 1.9 Total Bilirubin 0.4 Direct Bilirubin 0.00 Indirect Bilirubin 0.4 Aspartate Amino Transf (AST/SGOT) 52 H Alanine Aminotransferase (ALT/SGPT) 52 Alkaline Phosphatase 55 Total Protein 7.4 Albumin 3.6 Globulin 3.80 H Albumin/Globulin Ratio 0.94 Amylase Level 129 H Lipase 100 Medications Current Medications Lorazepam (Ativan) 1 mg Q1H PRN IV Seizures; Start 04/06/17 at 10:30 Ondansetron HCl (Zofran Inj) 4 mg Q6H PRN IV NAUSEA AND/OR VOMITING; Start at 10:30 Acetaminophen (Tylenol Tab) 650 mg Q6H PRN PO PAIN LEVEL 1-3 OR FEVER; Start 04/06/17 at 10:30 Zonisamide (Zonegran) 100 mg BID PO Last administered on 04/07/17 09:06; Admin Dose 100 MG; Start 04/06/17 at 11:30 Phenobarbital (Luminal) 64.8 mg BID PO Last administered on 04/07/17 09:06; Admin Dose 64.8 MG; Start 04/06/17 at 11:30 Divalproex Sodium (Depakote Er) 750 mg BID PO Last administered on 04/07/17 09 :05; Admin Dose 750 MG; Start 04/06/17 at 21:00 Assessment/Plan Chief Complaint/Hosp Course 32 yo male w hx of seizure disorder, developmental delay on several AED p/w breakthrough seizures. VPA level: 73 Phenobarbital Level: 40.1 borderline high range Utox + benzo and marijuana Recommend: smoking cessation will increase VPA to 750 mg BID Plt are now 131 would recommend outpatient monitoring as well to ensure stability continue current dose of PHB and Zonegran seizure precautions suggest that he would benefit from prolonged VEEG monitoring and admission to an EMU to further adjust meds as he has refractory seizures would unlikely to benefit from an additional AED he may be a candidate for VNS (vagal nerve stimulator) or epilepsy surgery discharge planning Problems: VANDANA GALLEGOS MD Apr 07, 2017 13:07
[2017-04-08] VITALS (10 sets, daily range): BP systolic 96–134; BP diastolic 53–74; PULSE 67–99; RESP 18–19
[2017-04-08] MEDS: PHENOBARBITAL 32.4 MG TAB PO SCH (09:05)
[2017-04-08] MEDS: DIVALPROEX (ER) 250 MG TAB PO SCH (09:06)
[2017-04-08] MEDS: ZONISAMIDE 100 MG CAP PO SCH (09:06)
--- NOTE | 2017-04-08 10:32 | PDOCDIS ---
Discharge Instructions DIAGNOSIS Discharge Diagnosis Seizure disorder. CONDITION Patient Condition: Stable HOME CARE INSTRUCTIONS: Diet Instructions: Regular ACTIVITY: Activity Restrictions: Do not Drive Do not operate Machinery Do not operate Power Tool OTHER ORDERS: Other Orders: 1. Take medications as per prescription. 2. Avoid using tobacco and marijuana. 3. Follow-up with your neurologist at the earliest. Suggest video EEG. RENÉ COBOS NP Apr 08, 2017 10:32
[2017-04-08] MEDS ORDERED: DIVA250T4 PO (10:39)
[2017-04-08] MEDS ORDERED: ZONI100C66 PO (10:39)
[2017-04-08] MEDS ORDERED: PHE30 PO (10:39)
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
== END 2017-04-08 17:10 | disposition home or self-care (01) | DRG 100 ==
LOC: E/R 06:50 → MS4 08:53
PROVIDERS: ADMIT Family Medicine; ATTEND Family Medicine
DX: G40.909 Epilepsy, unspecified, not intractable, without status epilepticus (principal); G93.40 Encephalopathy, unspecified; D69.6 Thrombocytopenia, unspecified; F17.210 Nicotine dependence, cigarettes, uncomplicated; F12.10 Cannabis abuse, uncomplicated; R62.59 Other lack of expected normal physiological development in childhood
CPT/HCPCS: 80048; 80053; 80164; 80184; 80307; 82150; 83690; 83735; 84100; 85025; 90686